=== PATIENT | male | born 1975 | race Hispanic/Latino ===

== ENCOUNTER 2017-08-12 07:53 | Day surgery (SDC) | payer BC ==
[~2017-08-12 07:53] MED LIST: DILAUDID IV PRN; LACTATED RINGERS 1,000 ML IV SCH; PERCOCET 5/325 PO PRN; TORADOL IV PRN; VERSED IV NR; ZOFRAN IV PRN
[2017-08-12] MEDS ORDERED: SUBLIMAZE ONE (08:47)
[2017-08-12] MEDS ORDERED: DIPRIVAN 10 MG/ML IV ONE (08:47)
[2017-08-12] MEDS ORDERED: XYLOCAINE MPF 2% ONE (08:55)
[2017-08-12] MEDS ORDERED: ZEMURON IV ONE (08:56)
--- NOTE | 2017-08-12 09:02 | Anesthesia Consultation ---
Anesthesia Consult and Med Hx Date of service: 08/12/17 - Airway Anesthetic Teeth Evaluation: Good, Crowns ROM Head & Neck: Adequate Mental/Hyoid Distance: Inadequate Mallampati Class: Class IV Intubation Access Assessment: Possibly Difficult - Pulmonary Exam CTA: Yes - Cardiac Exam Cardiac Exam: RRR - Pre-Operative Health Status ASA Pre-Surgery Classification: ASA2 Proposed Anesthetic Plan: General - Central Nervous System Hx Psychiatric Problems: No - Gastrointestinal Hx Gastroesophageal Reflux Disease: Yes - Other Systems Hx Alcohol Use: No Hx Substance Use: No Hx Cancer: No
--- NOTE | 2017-08-12 09:02 | Anesthesia Day of Surgery ---
Anesthesia Day of Surgery - Day of Surgery Patient Examined: Yes Patient H&P Reviewed: Yes Patient is NPO: Yes
[2017-08-12] MEDS ORDERED: PEPCID IV NR (09:15)
[2017-08-12] MEDS ORDERED: MARCAINE 0.25% INFILTRATI ONE ×3 (09:24→10:25)
[2017-08-12] MEDS ORDERED: HEPARIN SUB-Q NR (09:45)
[2017-08-12] MEDS ORDERED: VANCOMYCIN PHARMACY TO DOSE IV SCH (10:00)
[2017-08-12] MEDS ORDERED: VANCOMYCIN/NS 1 GM/250 ML 1 GM/250 ML BAG IV SCH (10:00)
[2017-08-12] MEDS ORDERED: DECADRON ONE (10:26)
[2017-08-12] MEDS ORDERED: ZOFRAN ONE (10:29)
--- NOTE | 2017-08-12 11:17 | Procedure Note ---
Date of procedure: 08/12/17 Pre-op diagnosis: Incarcerated ventral hernia Post-op diagnosis: same Procedure: Open repair of incarcerated ventral hernia with mesh Description of procedure: Pt was placed supine on the OR table. General anesthesia by LMA was administered. Abdomen was prepped and draped. Proposed incisional area was infiltrated with 4 ml of 0.25% Marcaine. A small, periumbilical incision was made. Hernia sac was dissected from the SQ tissue and skin. Hernia sac was incised and was found to contain incarcerated omentum. The omentum was freed from the hernia sac and the omentum reduced back into the peritoneal cavity. A small piece of Ventralex mesh was inserted into the peritoneal cavity. This was secured to the fascia with 3 interrupted sutures of 0-Ethibond. Skin was approximated with a running, subcuticular suture of 4-0 Monocryl. Skin glue was applied across the incision followed by a 4 X 4 and Tegaderm. Pt tolerated the procedure well. He was taken to PACU in stable condition. Findings: Incarcerated omentum Anesthesia: other (LMA) Surgeon: TESFAYE WRIGHT Estimated blood loss: minimal Pathology: none Specimen disposition: discarded Condition: stable Disposition: PACU
--- NOTE | 2017-08-12 11:23 | Post Anesthesia Evaluation ---
- Post Anesthesia Evaluation Patient Participated: Yes Airway Patent: Yes Stable Respiratory Function: Yes Nausea/Vomiting: No Temp > 96.8F: Yes Pain Manageable: Yes Adequeate Hydration: Yes Anesthesia Complications: No Block Receding Appropriately: Not Applicable Patient on Ventilator: No
[2017-08-12 12:31] VITALS: BP 125/77
== END 2017-08-12 12:40 | disposition home or self-care (01) ==
LOC: OR 07:53
PROVIDERS: ATTEND Surgery
DX: K43.6 Other and unspecified ventral hernia with obstruction, without gangrene (principal); K21.9 Gastro-esophageal reflux disease without esophagitis; Z88.0 Allergy status to penicillin
CPT/HCPCS: 49653; C1781; J1100; J1644; J1885; J2250; J2405; J2704; J3010; J3370; J7120